=== PATIENT | male | born 2005 | race Caucasian/White ===

== ENCOUNTER 2025-04-05 09:00 | Inpatient (IN) | payer SELFPAY ==
[2025-04-05] MEDS ORDERED: diphenhydrAMINE 50 MG/ML VIAL ONE (09:27)
[2025-04-05] MEDS ORDERED: Ondansetron PF 4 MG/2 ML Vial ONE ×2 (09:28→12:00)
[2025-04-05] MEDS ORDERED: Metoclopramide HCl 10 MG (2 mL) VIAL ONE (09:28)
[2025-04-05 09:38] LABS: #Basophils 0.05 10x3/uL (0.0-0.2); #Eosinophils 0.05 10x3/uL (0.0-0.5); #Monocytes 0.44 10x3/uL (0.0-1.1); #Neutrophils 14.97 10x3/uL (1.5-8.4); %Basophils 0.3 % (0.0-2.0); %Eosinophils 0.3 % (0.0-6.0); %Lymphocytes 11.6 % (18.0-47.0); %Monocytes 2.5 % (0.0-10.0); %Neutrophils 84.8 % (40.0-75.0); Hematocrit 43.1 % (38.8-50.0); Hemoglobin 14.7 g/dL (13.5-17.5); Mean Corpuscular Hemoglobin 29.0 pg (27.0-33.0); Mean Corpuscular Volume 85.0 fL (81.2-95.1); Platelet Count 508 10x3/uL (150-450); Red Blood Cell (RBC) Count 5.07 10x6/uL (4.32-5.72); White Blood Cell (WBC) Count 17.64 10x3/uL (3.5-10.5)
[2025-04-05 09:58] LABS: ALT (SGPT) 25 U/L (Less than 45); AST (SGOT) 17 U/L (11-34); Albumin 5.1 g/dL (3.1-4.5); Alkaline Phosphatase 92 U/L (50-130); Anion Gap 18 mmol/L (10-20); BUN (Urea Nitrogen) 9 mg/dL (8.9-20.6); Bilirubin, Total 0.4 mg/dL (0.3-1.2); Calc. Creatinine Clearance 0 mL/min (70-130); Calcium 10.1 mg/dL (7.8-10.44); Carbon Dioxide 20 mmol/L (22-29); Chloride 107 mmol/L (98-107); Globulin 3.3 g/dL (2.4-3.5); Glucose 138 mg/dL (70-105); Lipase 20 U/L (8-78); Potassium 3.5 mmol/L (3.5-5.1); Sodium 141 mmol/L (136-145)
[2025-04-05] MEDS ORDERED: Iopamidol 300 61% 100 ML VIAL FS ONE (10:26)
[2025-04-05] MEDS ORDERED: Acetaminophen 325 MG TAB PO PRN (13:44)
[2025-04-05] MEDS ORDERED: Melatonin 3 MG TAB PO PRN (13:44)
[2025-04-05] MEDS ORDERED: Calcium Carbonate 500 MG ChewTAB PO PRN (13:44)
[2025-04-05] MEDS ORDERED: Senokot S 8.6-50 MG TAB PO PRN (13:44)
[2025-04-05] MEDS ORDERED: Prochlorperazine 10 MG/2 ML VIAL SLOW IVP PRN ×2 (13:47→13:49)
[2025-04-05 15:02] LABS: Glucose, Urine (Dipstick) Normal (Negative); Leukocyte Negative (Negative); Protein, Urine (Dipstick) Negative (Neg-Trace); Specific Gravity, Urine 1.005 (1.005-1.030)
[2025-04-05 15:22] LABS: CAUTI Indications for Culture Dysuria,urgency,freq; RBC/HPF None Seen HPF (0-3); Urine Culture Reflex No No; WBC/HPF None Seen HPF (0-3)
[2025-04-05 15:51] VITALS: BMI 25.7
[2025-04-05] MEDS: Ondansetron PF 4 MG/2 ML Vial IVP PRN (20:32)
[2025-04-05] MEDS: Ketorolac Tromethamine 30 MG (1 mL) VIAL IVP PRN (20:33)
[2025-04-05 21:36] LABS: ALT (SGPT) 25 U/L (Less than 45); AST (SGOT) 20 U/L (11-34); Albumin 5.4 g/dL (3.1-4.5); Alkaline Phosphatase 91 U/L (50-130); Anion Gap 36 mmol/L (10-20); BUN (Urea Nitrogen) 9 mg/dL (8.9-20.6); Bilirubin, Total 0.5 mg/dL (0.3-1.2); CK (CPK) 139 U/L (30-200); Calc. Creatinine Clearance 105 mL/min (70-130); Calcium 10.2 mg/dL (7.8-10.44); Chloride 105 mmol/L (98-107); Globulin 3.4 g/dL (2.4-3.5); Glucose 164 mg/dL (70-105); Magnesium 1.9 mg/dL (1.7-2.2); Potassium 3.3 mmol/L (3.5-5.1); Sodium 146 mmol/L (136-145)
[2025-04-05 21:38] LABS: Carbon Dioxide 8 mmol/L (22-29)
[2025-04-05 21:41] LABS: Actual Bicarbonate (HCO3v) 8.0 mEq/L (22-28); Analyzer IN Cardio CS ER; Base Excess -18.9 mEq/L (-2 - +2); Calcium, Ionized (venous) 1.25 mmol/L (1.16-1.32); Chloride (VBG) 103 mmol/L (98-106); Hematocrit-VBG 46 % (42.0-52.0); Hemoglobin (Hb) 15.5 g/dL (13.2-17.3); Potassium (VBG) 3.37 mmol/L (3.70-5.30); Puncture Site Other Site; RapidComm Collect By lab; Sodium 145 mmol/L (133-146)
[2025-04-05 21:44] LABS: #Basophils 0.03 10x3/uL (0.0-0.2); #Eosinophils Less than 0.03 10x3/uL (0.0-0.5); #Monocytes 0.19 10x3/uL (0.0-1.1); #Neutrophils 16.25 10x3/uL (1.5-8.4); %Basophils 0.2 % (0.0-2.0); %Eosinophils 0.1 % (0.0-6.0); %Lymphocytes 15.4 % (18.0-47.0); %Monocytes 1.0 % (0.0-10.0); %Neutrophils 82.9 % (40.0-75.0); Hematocrit 45.4 % (38.8-50.0); Hemoglobin 14.7 g/dL (13.5-17.5); Mean Corpuscular Hemoglobin 30.1 pg (27.0-33.0); Mean Corpuscular Volume 93.0 fL (81.2-95.1); Platelet Count 626 10x3/uL (150-450); Red Blood Cell (RBC) Count 4.88 10x6/uL (4.32-5.72); White Blood Cell (WBC) Count 19.57 10x3/uL (3.5-10.5)
[2025-04-05 22:07] LABS: Cocaine Metabolite Screen Negative (Negative); THC/Cannabinoid Screen PRELIM POSITIVE (Negative); Tricyclic Screen Negative (Negative)
[2025-04-05] MEDS: NS IVPB SCH (22:19)
[2025-04-05] MEDS: LEVETIRACETAM IVPB SCH (22:19)
[2025-04-05] MEDS: levETIRAcetam 500 MG TAB PO SCH (22:20)
[2025-04-05] MEDS: Potassium Chloride 20 MEQ in Premix 1 BAG IVPB SCH (23:17)
[2025-04-05] MEDS: Magnesium 2 GM/50 ML(in water) 2 GM in Premix 1 BAG IVPB SCH (23:17)
[2025-04-05] MEDS: Magnesium 2 GM/50 ML BAG (IN WATER) ONE (23:20)
[2025-04-05] MEDS ORDERED: levETIRAcetam 500 MG TAB PO SCH (23:54)
[2025-04-06 02:50] LABS: Hematocrit 38.8 % (38.8-50.0); Hemoglobin 13.3 g/dL (13.5-17.5); Mean Corpuscular Hemoglobin 29.2 pg (27.0-33.0); Mean Corpuscular Volume 85.1 fL (81.2-95.1); Platelet Count 452 10x3/uL (150-450); Red Blood Cell (RBC) Count 4.56 10x6/uL (4.32-5.72); White Blood Cell (WBC) Count 25.28 10x3/uL (3.5-10.5)
[2025-04-06 03:05] LABS: Anion Gap 15 mmol/L (10-20); BUN (Urea Nitrogen) 8 mg/dL (8.9-20.6); CK (CPK) 129 U/L (30-200); Calc. Creatinine Clearance 137 mL/min (70-130); Calcium 9.2 mg/dL (7.8-10.44); Carbon Dioxide 23 mmol/L (22-29); Chloride 107 mmol/L (98-107); Glucose 125 mg/dL (70-105); Magnesium 2.8 mg/dL (1.7-2.2); Potassium 3.6 mmol/L (3.5-5.1); Sodium 141 mmol/L (136-145)
[2025-04-06 03:35] LABS: MDiff Complete? YES; Platelet Adequacy Comment Appears Increased; RBC Morphology Within Normal Limits
[2025-04-06 05:30] LABS: Actual Bicarbonate (HCO3v) 22.9 mEq/L (22-28); Analyzer IN Cardio CS ICU; Base Excess -1.1 mEq/L (-2 - +2); Calcium, Ionized (venous) 1.20 mmol/L (1.16-1.32); Chloride (VBG) 106 mmol/L (98-106); Hematocrit-VBG 40 % (42.0-52.0); Hemoglobin (Hb) 13.6 g/dL (13.2-17.3); Potassium (VBG) 3.76 mmol/L (3.70-5.30); Puncture Site Other Site; RapidComm Collect By RN; Sodium 140 mmol/L (133-146)
[2025-04-06] MEDS: levETIRAcetam 500 MG (5 mL) VIAL SLOW IVP SCH (10:47)
[2025-04-07 03:44] LABS: #Basophils 0.07 10x3/uL (0.0-0.2); #Eosinophils 0.06 10x3/uL (0.0-0.5); #Monocytes 0.71 10x3/uL (0.0-1.1); #Neutrophils 7.21 10x3/uL (1.5-8.4); %Basophils 0.6 % (0.0-2.0); %Eosinophils 0.5 % (0.0-6.0); %Lymphocytes 35.5 % (18.0-47.0); %Monocytes 5.7 % (0.0-10.0); %Neutrophils 57.4 % (40.0-75.0); Hematocrit 34.7 % (38.8-50.0); Hemoglobin 11.3 g/dL (13.5-17.5); Mean Corpuscular Hemoglobin 28.7 pg (27.0-33.0); Mean Corpuscular Volume 88.1 fL (81.2-95.1); Platelet Count 341 10x3/uL (150-450); Red Blood Cell (RBC) Count 3.94 10x6/uL (4.32-5.72); White Blood Cell (WBC) Count 12.54 10x3/uL (3.5-10.5)
[2025-04-07 03:56] LABS: Anion Gap 10 mmol/L (10-20); BUN (Urea Nitrogen) 8 mg/dL (8.9-20.6); Calc. Creatinine Clearance 136 mL/min (70-130); Calcium 8.3 mg/dL (7.8-10.44); Carbon Dioxide 26 mmol/L (22-29); Chloride 109 mmol/L (98-107); Glucose 103 mg/dL (70-105); Potassium 3.8 mmol/L (3.5-5.1); Sodium 141 mmol/L (136-145)
[2025-04-07 11:14] VITALS: BP 108/44; TEMP 97.8
== END 2025-04-07 14:55 | disposition home or self-care (01) | DRG 392 ==
LOC: CSHERS 09:00 → CSHTELE 13:45 → CSHICU 21:20 → OBSVTOIN 21:47
PROVIDERS: ADMIT Internal Medicine; ATTEND Hospitalist
PROC: XX20X89 Monitoring of Brain Electrical Activity, Computer-aided Detection and Notification, New Technology Group 9 (ICD-10-PCS; principal; 2025-04-05)
DX: K52.9 Noninfective gastroenteritis and colitis, unspecified (principal); E86.9 Volume depletion, unspecified; G40.909 Epilepsy, unspecified, not intractable, without status epilepticus; Z79.899 Other long term (current) drug therapy; F17.220 Nicotine dependence, chewing tobacco, uncomplicated; F41.9 Anxiety disorder, unspecified; E86.0 Dehydration
CPT/HCPCS: 36415; 36416; 70450; 70551; 74177; 80048; 80053; 80306; 81001; 82550; 82805; 83605; 83690; 83735; 84146; 85025; 86140; 93005; 93010; 95705; 96374; 96375; 96376; G0378; J1200; J1885; J1953; J2060; J2405; J2543; J2550; J2765; J2919; J3360; J3475; J3480; J7120; Q9967

== ENCOUNTER 2025-06-30 23:14 | Emergency (ER) | payer SELFPAY ==
[2025-07-01] MEDS ORDERED: Ketorolac Tromethamine 30 MG (1 mL) VIAL ONE (00:34)
[2025-07-01] MEDS ORDERED: Methocarbamol 500 MG TAB ONE (00:34)
== END 2025-07-01 01:35 | disposition home or self-care (01) ==
LOC: CSHERS 23:14
DX: M54.42 Lumbago with sciatica, left side (principal); F17.220 Nicotine dependence, chewing tobacco, uncomplicated
CPT/HCPCS: 96372; 99283; J1885

== ENCOUNTER 2025-07-09 08:04 | Inpatient (IN) | payer SELFPAY ==
[2025-07-09 08:48] LABS: #Basophils 0.04 10x3/uL (0.0-0.2); #Eosinophils 0.09 10x3/uL (0.0-0.5); #Monocytes 0.51 10x3/uL (0.0-1.1); #Neutrophils 13.09 10x3/uL (1.5-8.4); %Basophils 0.2 % (0.0-2.0); %Eosinophils 0.6 % (0.0-6.0); %Lymphocytes 13.9 % (18.0-47.0); %Monocytes 3.2 % (0.0-10.0); %Neutrophils 81.5 % (40.0-75.0); Hematocrit 43.7 % (38.8-50.0); Hemoglobin 14.8 g/dL (13.5-17.5); Mean Corpuscular Hemoglobin 29.6 pg (27.0-33.0); Mean Corpuscular Volume 87.4 fL (81.2-95.1); Platelet Count 492 10x3/uL (150-450); Red Blood Cell (RBC) Count 5.00 10x6/uL (4.32-5.72); White Blood Cell (WBC) Count 16.06 10x3/uL (3.5-10.5)
[2025-07-09 08:59] LABS: Acetaminophen Less than 10 mcg/mL (Less than 10); Salicylate Less than 8.0 mg/dL (Less than 8.0)
[2025-07-09] MEDS ORDERED: Droperidol 5 MG/2 ML VIAL ONE ×2 (08:59→09:51)
[2025-07-09] MEDS ORDERED: levETIRAcetam 500 MG (5 mL) VIAL ONE (09:00)
[2025-07-09 09:01] LABS: ALT (SGPT) 35 U/L (Less than 45); AST (SGOT) 23 U/L (11-34); Albumin 5.2 g/dL (3.1-4.5); Alkaline Phosphatase 99 U/L (50-130); Anion Gap 18 mmol/L (10-20); BUN (Urea Nitrogen) 15 mg/dL (8.9-20.6); Bilirubin, Total 0.4 mg/dL (0.3-1.2); Calc. Creatinine Clearance 0 mL/min (70-130); Calcium 10.2 mg/dL (7.8-10.44); Carbon Dioxide 21 mmol/L (22-29); Chloride 108 mmol/L (98-107); Globulin 2.9 g/dL (2.4-3.5); Glucose 116 mg/dL (70-105); Potassium 4.7 mmol/L (3.5-5.1); Sodium 142 mmol/L (136-145)
[2025-07-09 09:07] LABS: Troponin I Less than 0.010 ng/mL (< 0.028)
[2025-07-09] MEDS ORDERED: Acetaminophen 325 MG TAB PO PRN (13:40)
[2025-07-09] MEDS ORDERED: Electrolyte Replacement Protocol 1 EACH FS SCH (13:45)
[2025-07-09 16:22] VITALS: BMI 25.2
[2025-07-09] MEDS ORDERED: PHOS-NAK 1 PKT PACK PO PRN (16:45)
[2025-07-09] MEDS ORDERED: Magnesium 2 GM/50 ML(in water) 2 GM in Premix 1 BAG IVPB PRN (16:45)
[2025-07-09] MEDS ORDERED: Potassium Chloride 20 MEQ in Premix 1 BAG IVPB PRN (16:45)
[2025-07-09] MEDS: levETIRAcetam 500 MG (5 mL) VIAL SLOW IVP SCH (20:13)
[2025-07-09] MEDS: FLU (Fluarix Triv) 25-26 (6MOS UP)/PF 45 MCG/0.5 ML Syringe IM ONE (20:24)
[2025-07-09] MEDS ORDERED: levETIRAcetam in NS 1,000 MG in Premix 1 BAG IVPB SCH (21:00)
[2025-07-09] MEDS: Methocarbamol 500 MG TAB PO SCH (22:14)
[2025-07-10 05:06] LABS: #Basophils Less than 0.03 10x3/uL (0.0-0.2); #Eosinophils Less than 0.03 10x3/uL (0.0-0.5); #Monocytes 0.72 10x3/uL (0.0-1.1); #Neutrophils 11.53 10x3/uL (1.5-8.4); %Basophils 0.1 % (0.0-2.0); %Eosinophils 0.0 % (0.0-6.0); %Lymphocytes 14.1 % (18.0-47.0); %Monocytes 5.0 % (0.0-10.0); %Neutrophils 79.5 % (40.0-75.0); Hematocrit 37.2 % (38.8-50.0); Hemoglobin 12.9 g/dL (13.5-17.5); Mean Corpuscular Hemoglobin 29.9 pg (27.0-33.0); Mean Corpuscular Volume 86.1 fL (81.2-95.1); Platelet Count 430 10x3/uL (150-450); Red Blood Cell (RBC) Count 4.32 10x6/uL (4.32-5.72); White Blood Cell (WBC) Count 14.50 10x3/uL (3.5-10.5)
[2025-07-10 05:21] LABS: Anion Gap 13 mmol/L (10-20); BUN (Urea Nitrogen) 10 mg/dL (8.9-20.6); Calc. Creatinine Clearance 195 mL/min (70-130); Calcium 9.1 mg/dL (7.8-10.44); Carbon Dioxide 26 mmol/L (22-29); Chloride 105 mmol/L (98-107); Glucose 111 mg/dL (70-105); Potassium 3.8 mmol/L (3.5-5.1); Sodium 140 mmol/L (136-145)
[2025-07-10 07:41] LABS: Cocaine Metabolite Screen Negative (Negative); THC/Cannabinoid Screen PRELIM POSITIVE (Negative); Tricyclic Screen Negative (Negative)
[2025-07-10 12:53] VITALS: BP 138/59; TEMP 98.3
== END 2025-07-10 13:06 | disposition home or self-care (01) | DRG 918 ==
LOC: CSHERS 08:04 → CSHTELE 14:06
PROVIDERS: ADMIT Internal Medicine; ATTEND Student in an Organized Health Care Education/Training Program
DX: T40.721A Poisoning by synthetic cannabinoids, accidental (unintentional), initial encounter (principal); K52.9 Noninfective gastroenteritis and colitis, unspecified; G40.909 Epilepsy, unspecified, not intractable, without status epilepticus; Z71.6 Tobacco abuse counseling; Z91.018 Allergy to other foods; Z79.899 Other long term (current) drug therapy
CPT/HCPCS: 36415; 74177; 80048; 80053; 80306; 80307; 83605; 83690; 84484; 85025; 93005; 93306; 94760; 96374; 96375; 96376; J1790; J1953; J2550; J7030

== ENCOUNTER 2025-07-29 09:47 | Observation (INO) | payer SELFPAY ==
[2025-07-29] MEDS ORDERED: Droperidol 5 MG/2 ML VIAL ONE ×2 (10:17→13:45)
[2025-07-29] MEDS ORDERED: levETIRAcetam 500 MG (5 mL) VIAL ONE (10:41)
[2025-07-29 10:44] LABS: #Basophils 0.07 10x3/uL (0.0-0.2); #Eosinophils 0.08 10x3/uL (0.0-0.5); #Monocytes 0.52 10x3/uL (0.0-1.1); #Neutrophils 10.21 10x3/uL (1.5-8.4); %Basophils 0.5 % (0.0-2.0); %Eosinophils 0.6 % (0.0-6.0); %Lymphocytes 17.6 % (18.0-47.0); %Monocytes 3.9 % (0.0-10.0); %Neutrophils 76.9 % (40.0-75.0); Hematocrit 40.5 % (38.8-50.0); Hemoglobin 14.2 g/dL (13.5-17.5); Mean Corpuscular Hemoglobin 29.5 pg (27.0-33.0); Mean Corpuscular Volume 84.2 fL (81.2-95.1); Platelet Count 552 10x3/uL (150-450); Red Blood Cell (RBC) Count 4.81 10x6/uL (4.32-5.72); White Blood Cell (WBC) Count 13.29 10x3/uL (3.5-10.5)
[2025-07-29 10:59] LABS: ALT (SGPT) 39 U/L (Less than 45); AST (SGOT) 36 U/L (11-34); Albumin 4.8 g/dL (3.1-4.5); Alkaline Phosphatase 95 U/L (50-130); Anion Gap 16 mmol/L (10-20); BUN (Urea Nitrogen) 9 mg/dL (8.9-20.6); Bilirubin, Total 0.2 mg/dL (0.3-1.2); Calc. Creatinine Clearance 0 mL/min (70-130); Calcium 9.7 mg/dL (7.8-10.44); Carbon Dioxide 21 mmol/L (22-29); Chloride 106 mmol/L (98-107); Globulin 3.2 g/dL (2.4-3.5); Glucose 117 mg/dL (70-105); Lipase 25 U/L (8-78); Potassium 4.1 mmol/L (3.5-5.1); Sodium 139 mmol/L (136-145)
[2025-07-29 11:44] LABS: Magnesium 1.4 mg/dL (1.7-2.2)
[2025-07-29] MEDS ORDERED: Magnesium 2 GM/50 ML BAG (IN WATER) ONE (11:52)
[2025-07-29 12:53] LABS: Glucose, Urine (Dipstick) Normal (Negative); Leukocyte Negative (Negative); Protein, Urine (Dipstick) Negative (Neg-Trace); Specific Gravity, Urine 1.015 (1.005-1.030)
[2025-07-29 13:00] LABS: Cocaine Metabolite Screen Negative (Negative); THC/Cannabinoid Screen PRELIM POSITIVE (Negative); Tricyclic Screen Negative (Negative)
[2025-07-29 13:40] LABS: CAUTI Indications for Culture Pelvic or flank pain; WBC/HPF 0-3 HPF (0-3)
[2025-07-29 13:41] LABS: Bacteria/HPF Rare-Few HPF (None Seen)
[2025-07-29 13:42] LABS: Urine Culture Reflex No No
[2025-07-29] MEDS ORDERED: Orphenadrine Citrate 60 MG/2 ML VIAL ONE (13:52)
[2025-07-29] MEDS ORDERED: Electrolyte Replacement Protocol 1 EACH FS SCH (14:30)
[2025-07-29 14:36] VITALS: BMI 24.7
[2025-07-29] MEDS ORDERED: Acetaminophen 325 MG TAB PO PRN (14:39)
[2025-07-29] MEDS ORDERED: Potassium Chloride 20 MEQ in Premix 1 BAG IVPB PRN (15:15)
[2025-07-29] MEDS ORDERED: PHOS-NAK 1 PKT PACK PO PRN (15:15)
[2025-07-29] MEDS: Magnesium 2 GM/50 ML(in water) 2 GM in Premix 1 BAG IVPB PRN (17:07)
[2025-07-29 17:39] LABS: Anion Gap 17 mmol/L (10-20); BUN (Urea Nitrogen) 6 mg/dL (8.9-20.6); Calc. Creatinine Clearance 211 mL/min (70-130); Calcium 8.9 mg/dL (7.8-10.44); Carbon Dioxide 21 mmol/L (22-29); Chloride 103 mmol/L (98-107); Glucose 126 mg/dL (70-105); Magnesium 1.8 mg/dL (1.7-2.2); Potassium 3.7 mmol/L (3.5-5.1); Sodium 137 mmol/L (136-145)
[2025-07-29] MEDS ORDERED: levETIRAcetam in NS 1,000 MG in Premix 1 BAG IVPB SCH (21:00)
[2025-07-29] MEDS: levETIRAcetam 500 MG (5 mL) VIAL SLOW IVP SCH (21:16)
[2025-07-29 22:01] LABS: Anion Gap 14 mmol/L (10-20); BUN (Urea Nitrogen) 5 mg/dL (8.9-20.6); Calc. Creatinine Clearance 211 mL/min (70-130); Calcium 9.3 mg/dL (7.8-10.44); Carbon Dioxide 23 mmol/L (22-29); Chloride 105 mmol/L (98-107); Glucose 107 mg/dL (70-105); Potassium 4.0 mmol/L (3.5-5.1); Sodium 138 mmol/L (136-145)
[2025-07-30 03:50] LABS: #Basophils Less than 0.03 10x3/uL (0.0-0.2); #Eosinophils 0.05 10x3/uL (0.0-0.5); #Monocytes 0.92 10x3/uL (0.0-1.1); #Neutrophils 10.33 10x3/uL (1.5-8.4); %Basophils 0.1 % (0.0-2.0); %Eosinophils 0.3 % (0.0-6.0); %Lymphocytes 22.1 % (18.0-47.0); %Monocytes 6.3 % (0.0-10.0); %Neutrophils 70.9 % (40.0-75.0); Hematocrit 35.0 % (38.8-50.0); Hemoglobin 12.3 g/dL (13.5-17.5); Mean Corpuscular Hemoglobin 29.9 pg (27.0-33.0); Mean Corpuscular Volume 85.0 fL (81.2-95.1); Platelet Count 439 10x3/uL (150-450); Red Blood Cell (RBC) Count 4.12 10x6/uL (4.32-5.72); White Blood Cell (WBC) Count 14.59 10x3/uL (3.5-10.5)
[2025-07-30 04:04] LABS: ALT (SGPT) 28 U/L (Less than 45); AST (SGOT) 17 U/L (11-34); Albumin 3.9 g/dL (3.1-4.5); Alkaline Phosphatase 80 U/L (50-130); Anion Gap 12 mmol/L (10-20); BUN (Urea Nitrogen) 7 mg/dL (8.9-20.6); Bilirubin, Total 0.3 mg/dL (0.3-1.2); Calc. Creatinine Clearance 214 mL/min (70-130); Calcium 8.9 mg/dL (7.8-10.44); Carbon Dioxide 26 mmol/L (22-29); Chloride 107 mmol/L (98-107); Globulin 2.3 g/dL (2.4-3.5); Glucose 110 mg/dL (70-105); Magnesium 2.1 mg/dL (1.7-2.2); Potassium 3.7 mmol/L (3.5-5.1); Sodium 141 mmol/L (136-145)
[2025-07-30 09:41] VITALS: BP 128/61; TEMP 98.3
[2025-07-30] MEDS ORDERED: Cyclobenzaprine 10 MG TAB PO PRN (10:00)
[2025-07-30] MEDS: Cyclobenzaprine 10 MG TAB PO SCH (10:28)
== END 2025-07-30 10:56 | disposition home or self-care (01) ==
LOC: CSHERS 09:47 → CSHTELE 14:17
PROVIDERS: ADMIT Internal Medicine; ATTEND Internal Medicine
DX: E86.0 Dehydration (principal); E87.20 Acidosis, unspecified; E83.42 Hypomagnesemia; G40.909 Epilepsy, unspecified, not intractable, without status epilepticus; F41.9 Anxiety disorder, unspecified; F17.290 Nicotine dependence, other tobacco product, uncomplicated; Z88.8 Allergy status to other drugs, medicaments and biological substances; Z79.899 Other long term (current) drug therapy
CPT/HCPCS: 36415; 80053; 80306; 81001; 83605; 83690; 83735; 85025; 93005; 94760; 96361; 96365; 96366; 96375; 96376; G0378; J1790; J1953; J2360; J2550; J3475; J7120